=== PATIENT | female | born 1935 | race Caucasian/White ===

== ENCOUNTER 2017-11-25 08:01 | Inpatient (IN) | payer MEDICARE ==
[~2017-11-25] VITALS: Ht 5451.6 cm; Wt 62.7 kg
[~2017-11-25 08:01] MED LIST: CARV25TA PO; FURO-149 PO; INSU100V12 SQ; INSU100V36 SQ; ISOS30TA6 PO; SPIR25TA3 PO
[2017-11-25 08:42] LABS: BASOPHILS % (AUTO) 0.3 % (0-1); EOSINOPHILS # (AUTO) 0.1 X10'3 (0-0.9); EOSINOPHILS % (AUTO) 1.3 % (0-6); HEMATOCRIT 24.4 % (35.0-45.0); HEMOGLOBIN 8.5 g/dl (12.0-16.0); LYMPHOCYTES # (AUTO) 0.6 X10'3 (1.1-4.8); LYMPHOCYTES % (AUTO) 8.7 % (21-51); MEAN CORPUSCULAR HEMOGLOBIN 29.8 PG (27.0-31.0); MEAN CORPUSCULAR VOLUME 85.3 FL (78-98); MEAN PLATELET VOLUME 8.1 FL (7.4-10.4); MONOCYTES # (AUTO) 0.8 X10'3 (0-0.9); MONOCYTES % (AUTO) 12.1 % (2-12); NEUTROPHILS % (AUTO) 77.6 % (42-75); PLATELET COUNT 184 X10'3 (140-440); RED BLOOD COUNT 2.86 X10'6 (4.20-5.60); RED CELL DISTRIBUTION WIDTH 12.6 % (11.5-14.5); WHITE BLOOD COUNT 6.4 X10'3 (4.5-11.0)
[2017-11-25 08:53] LABS: INR 1.2 INR; PARTIAL THROMBOPLASTIN TIME 31 SECONDS (22-32); PROTHROMBIN TIME 12.2 SECONDS (9.0-12.0)
[2017-11-25 09:07] LABS: ALANINE AMINOTRANSFERASE 9 U/L (12-78); ALBUMIN 2.8 G/DL (3.4-5.0); ALBUMIN/GLOBULIN RATIO 0.7 (1.1-1.5); ALKALINE PHOSPHATASE 75 IU/L (46-116); ANION GAP 13 (8-16); ASPARTATE AMINO TRANSFERASE 10 U/L (10-37); BILIRUBIN,TOTAL 0.5 MG/DL (0.1-1.0); BLOOD UREA NITROGEN 68 MG/DL (7-18); BUN/CREATININE RATIO 22.7 (6.6-38.0); CALCIUM 8.9 MG/DL (8.5-10.1); CHLORIDE 93 MMOL/L (99-107); CREATININE 2.99 MG/DL (0.40-0.90); GLUCOSE 217 MG/DL (70-104); POTASSIUM 5.5 MMOL/L (3.5-5.1); SODIUM 127 MMOL/L (135-145); TOTAL CARBON DIOXIDE 20.9 MMOL/L (24-32); TOTAL PROTEIN 6.6 G/DL (6.4-8.2); eGFR 15 ML/MIN
[2017-11-25 09:59] LABS: CLARITY,URINE Turbid (Clear); COLOR,URINE Yellow (Yellow); GLUCOSE, URINE Negative (Neg); KETONES,URINE Negative (Neg); LEUKOCYTE ESTERASE ,URINE Large (Neg); NITRITES, URINE Negative (Neg); OCCULT BLOOD,URINE Trace (Neg); PROTEIN,URINE 100 mg/dl (Neg); UROBILINOGEN,URINE 0.2 E.U/dL (0.2-1.0)
[2017-11-25 10:00] LABS: UA COLLECTION TYPE FOLEY CATH
[2017-11-25 10:07] LABS: BACTERIA,URINE 4+ /HPF (Neg); MUCUS STRANDS NONE SEEN /LPF (Neg); RBC,URINE 0-2 /HPF (0-2); SQUAMOUS EPITHELIAL CELL,UR NONE SEEN /LPF (FEW); WBC,URINE TNTC /HPF (0-4)
[2017-11-25] MEDS ORDERED: levoFLOXACIN-Levaquin 500mg/D5 100 ML IV ONE (10:25)
[2017-11-25] MEDS ORDERED: magnesium hydroxide 30ml (MOM) UD suspension PO PRN (11:15)
[2017-11-25] MEDS ORDERED: mag hydrox/Alum hydrox/simeth 30ml oral suspension PO PRN (11:15)
[2017-11-25] MEDS ORDERED: glucagon, human recombinant 1mg kit SUBCUT PRN (11:15)
[2017-11-25] MEDS ORDERED: dextrose 50%-water 50ml dispensing syringe IV PRN ×2 (11:15)
[2017-11-25] MEDS ORDERED: acetaminophen 325mg tablet PO PRN (11:15)
[2017-11-25] MEDS ORDERED: ondansetron/PF 4mg/2ml inj IV PRN ×2 (11:15→14:20)
[2017-11-25] MEDS ORDERED: MESSAGE TO PHARMACY PO ONE (11:15)
[2017-11-25] MEDS ORDERED: dextrose ORAL solution 15 GM/59 ML bottle PO PRN ×2 (11:15)
[2017-11-25] MEDS: normal saline 1000ml 1,000 ML IV SCH ×2 (11:17→19:06)
[2017-11-25] MEDS ORDERED: insulin regular, human 10 units/0.1 ml syringe IV ONE (11:20)
[2017-11-25] MEDS ORDERED: dextrose 50%-water 50ml dispensing syringe IV ONE (11:20)
[2017-11-25] MEDS ORDERED: calcium chloride 100 MG/1 ML inj IV ONE (11:20)
[2017-11-25] MEDS ORDERED: sodium bicarbonate (8.4%) 1 mEq/ml syringe IV ONE (11:20)
[2017-11-25] MEDS ORDERED: albuterol 2.5 MG/3 ML nebule NEB ONE (11:20)
[2017-11-25] MEDS ORDERED: acetaminophen w/codeine (30MG) #3 tablet PO PRN (11:25)
[2017-11-25] MEDS ORDERED: HYDROcodone/acetaminophen 5mg/325mg tablet PO PRN (11:25)
[2017-11-25 11:50] LABS: ABG BASE EXCESS -7.7 mmol/L (-2.0-3.0); ABG OXYGEN SATURATION 97.7 % (95-98); ABG PCO2 (T) 26.3 mmHg (32.0-45.0); ABG PH (T) 7.401 (7.350-7.450); ABG PO2 (T) 110.5 mmHg (83-108); ALLEN'S TEST Positive; FCOHb 0.5 % (0.5-1.5); FLOW 1 L/min; FO2Hb 97.2 % (94-100); TOTAL HEMOGLOBIN 8.9 G/dl (12.0-16.0)
[2017-11-25] MEDS: sodium polystyrene sulfonate 15gm/60ml oral suspension PO ONE ×2 (11:58→14:11)
[2017-11-25 11:59] LABS: HEMOGLOBIN A1C 9.7 % (4.5-6.2)
[2017-11-25 12:03] LABS: C-REACTIVE PROTEIN 8.38 MG/DL (0.0-0.5); MAGNESIUM 1.3 MG/DL (1.5-2.4); PHOSPHORUS 3.5 MG/DL (2.3-4.5)
[2017-11-25] MEDS ORDERED: ASPI81TA52 PO (13:09)
[2017-11-25] MEDS ORDERED: LOSA25TA96 PO (13:47)
[2017-11-25] MEDS ORDERED: proCHLORperazine 10 MG/2 ml inj IV PRN ×2 (14:15→15:55)
[2017-11-25] MEDS ORDERED: potassium Cl 20 mEq SR tablet PO PRN ×2 (15:15)
[2017-11-25] MEDS ORDERED: potassium Cl 40MEQ/NS 500ml 500 ML IV PRN ×2 (15:15)
[2017-11-25 15:26] LABS: OCCULT BLOOD STOOL NEGATIVE (Neg)
[2017-11-25 15:30] VITALS: BP 115/54
[2017-11-25] MEDS: ondansetron/PF 4mg/2ml inj IV PRN (16:06)
[2017-11-25 16:08] LABS: C DIFF ANTIGEN NEGATIVE (NEGATIVE); C DIFF SPECIMEN=DIARRHEA? ACCEPTABLE; C DIFFICILE TOXINS A&B NEGATIVE (Neg)
[2017-11-25] MEDS ORDERED: magnesium Cl slow-release 64mg tablet PO PRN (17:25)
[2017-11-25] MEDS ORDERED: magnesium 4gm in 100ml NS 100 ML IV PRN (17:25)
[2017-11-25] MEDS ORDERED: magnesium 2GM in 50ml NS 50 ML IV PRN (17:25)
[2017-11-25] MEDS ORDERED: normal saline 1000ml 1,000 ML IV ONE (17:40)
[2017-11-25] MEDS ORDERED: diltiazem 5mg/ml 5ml inj. IV ONE ×2 (17:40→18:40)
[2017-11-25 19:00] VITALS: BP 107/55
[2017-11-25] MEDS: insulin Lispro (HumaLOG) vial - multi-dose SQ SCH (19:25)
[2017-11-25] MEDS: carVEDilol 12.5mg tablet PO SCH (20:00)
[2017-11-25] MEDS ORDERED: insulin glargine (Lantus) pen - multi-dose SQ ONE (22:00)
[2017-11-25 23:00] VITALS: BP 108/52
[2017-11-26] MEDS: normal saline 1000ml 1,000 ML IV SCH ×4 (00:37→20:37)
[2017-11-26 03:00] VITALS: BP 123/73
[2017-11-26 06:00] VITALS: BP 125/80
[2017-11-26 06:31] LABS: BASOPHILS % (AUTO) 0.5 % (0-1); EOSINOPHILS % (AUTO) 0.2 % (0-6); HEMOGLOBIN 8.5 g/dl (12.0-16.0); LYMPHOCYTES # (AUTO) 0.4 X10'3 (1.1-4.8); LYMPHOCYTES % (AUTO) 5.8 % (21-51); MEAN CORPUSCULAR HEMOGLOBIN 29.6 PG (27.0-31.0); MEAN CORPUSCULAR HGB CONC 34.2 % (33.0-36.5); MEAN CORPUSCULAR VOLUME 86.7 FL (78-98); MEAN PLATELET VOLUME 8.4 FL (7.4-10.4); MONOCYTES # (AUTO) 0.6 X10'3 (0-0.9); MONOCYTES % (AUTO) 8.2 % (2-12); NEUTROPHILS # (AUTO) 6.1 X10'3 (1.8-7.7); NEUTROPHILS % (AUTO) 85.3 % (42-75); PLATELET COUNT 197 X10'3 (140-440); RED BLOOD COUNT 2.88 X10'6 (4.20-5.60); RED CELL DISTRIBUTION WIDTH 12.2 % (11.5-14.5); WHITE BLOOD COUNT 7.1 X10'3 (4.5-11.0)
[2017-11-26 06:51] LABS: ALANINE AMINOTRANSFERASE 13 U/L (12-78); ALBUMIN 2.6 G/DL (3.4-5.0); ALBUMIN/GLOBULIN RATIO 0.7 (1.1-1.5); ALKALINE PHOSPHATASE 114 IU/L (46-116); ANION GAP 16 (8-16); ASPARTATE AMINO TRANSFERASE 17 U/L (10-37); BILIRUBIN,TOTAL 0.4 MG/DL (0.1-1.0); BLOOD UREA NITROGEN 66 MG/DL (7-18); BUN/CREATININE RATIO 25.5 (6.6-38.0); CALCIUM 8.9 MG/DL (8.5-10.1); CHLORIDE 99 MMOL/L (99-107); CREATININE 2.59 MG/DL (0.40-0.90); GLUCOSE 294 MG/DL (70-104); MAGNESIUM 3.2 MG/DL (1.5-2.4); POTASSIUM 4.9 MMOL/L (3.5-5.1); SODIUM 132 MMOL/L (135-145); TOTAL CARBON DIOXIDE 17.5 MMOL/L (24-32); TOTAL PROTEIN 6.3 G/DL (6.4-8.2); eGFR 18 ML/MIN
[2017-11-26] MEDS: carVEDilol 12.5mg tablet PO SCH ×2 (09:30→20:00)
[2017-11-26] MEDS: isosorbide mononitrate 30mg tab.SR.24H PO SCH (09:30)
[2017-11-26] MEDS: pantoprazole 40mg Tablet.DR PO SCH (09:30)
[2017-11-26] MEDS: insulin Lispro (HumaLOG) vial - multi-dose SQ SCH ×2 (10:05→13:55)
[2017-11-26 11:00] VITALS: BP 101/52
[2017-11-26 15:00] VITALS: BP 98/54
[2017-11-26] MEDS: acetaminophen 325mg tablet PO PRN (17:52)
[2017-11-26] MEDS ORDERED: insulin regular, human inj. 100 UNITS in normal saline 100ml IV soln 100 ML IV SCH ×2 (18:20)
[2017-11-26] MEDS ORDERED: dextrose 50%-water 50ml dispensing syringe IV PRN (18:20)
[2017-11-26 18:30] VITALS: BP 104/53
[2017-11-26] MEDS ORDERED: dextrose 5%-1/2 normal saline 1,000 ML IV SCH (20:00)
[2017-11-26 22:00] VITALS: BP 97/51
[2017-11-27] VITALS (17 sets, daily range): BP systolic 87–138; BP diastolic 49–96
[2017-11-27] MEDS: acetaminophen 325mg tablet PO PRN (01:58)
[2017-11-27] MEDS ORDERED: albumin (human) 25% 100 ML IV solution IV ONE (02:20)
[2017-11-27] MEDS: normal saline 1000ml 1,000 ML IV SCH ×5 (03:17→18:57)
[2017-11-27] MEDS: insulin Lispro (HumaLOG) vial - multi-dose SQ SCH ×6 (04:07→21:53)
[2017-11-27] MEDS ORDERED: furosemide 40mg/4ml inj IV ONE (05:35)
[2017-11-27 06:09] LABS: BASOPHILS % (AUTO) 0.5 % (0-1); EOSINOPHILS % (AUTO) 0.5 % (0-6); LYMPHOCYTES # (AUTO) 0.4 X10'3 (1.1-4.8); MEAN CORPUSCULAR HEMOGLOBIN 29.4 PG (27.0-31.0); MEAN CORPUSCULAR HGB CONC 34.3 % (33.0-36.5); MEAN CORPUSCULAR VOLUME 85.6 FL (78-98); MONOCYTES # (AUTO) 0.5 X10'3 (0-0.9); MONOCYTES % (AUTO) 9.4 % (2-12); NEUTROPHILS # (AUTO) 4.4 X10'3 (1.8-7.7); NEUTROPHILS % (AUTO) 81.6 % (42-75); PLATELET COUNT 168 X10'3 (140-440); RED BLOOD COUNT 2.36 X10'6 (4.20-5.60); RED CELL DISTRIBUTION WIDTH 12.4 % (11.5-14.5); WHITE BLOOD COUNT 5.4 X10'3 (4.5-11.0)
[2017-11-27 06:22] LABS: HEMATOCRIT 20.2 % (35.0-45.0); HEMOGLOBIN 6.9 g/dl (12.0-16.0)
[2017-11-27 06:32] LABS: ALANINE AMINOTRANSFERASE 20 U/L (12-78); ALBUMIN 2.7 G/DL (3.4-5.0); ALBUMIN/GLOBULIN RATIO 0.9 (1.1-1.5); ALKALINE PHOSPHATASE 99 IU/L (46-116); ANION GAP 15 (8-16); ASPARTATE AMINO TRANSFERASE 17 U/L (10-37); BILIRUBIN,TOTAL 0.5 MG/DL (0.1-1.0); BLOOD UREA NITROGEN 62 MG/DL (7-18); BUN/CREATININE RATIO 23.3 (6.6-38.0); CALCIUM 8.1 MG/DL (8.5-10.1); CHLORIDE 102 MMOL/L (99-107); CREATININE 2.66 MG/DL (0.40-0.90); GLUCOSE 227 MG/DL (70-104); MAGNESIUM 2.5 MG/DL (1.5-2.4); POTASSIUM 4.2 MMOL/L (3.5-5.1); SODIUM 134 MMOL/L (135-145); TOTAL CARBON DIOXIDE 16.6 MMOL/L (24-32); TOTAL PROTEIN 5.7 G/DL (6.4-8.2); eGFR 17 ML/MIN
[2017-11-27] MEDS: carVEDilol 12.5mg tablet PO SCH ×2 (08:00→19:24)
[2017-11-27] MEDS: pantoprazole 40mg Tablet.DR PO SCH (08:09)
[2017-11-27] MEDS: levoFLOXACIN-Levaquin 500mg/D5 100 ML IV SCH (08:09)
[2017-11-27] MEDS: isosorbide mononitrate 30mg tab.SR.24H PO SCH (08:09)
[2017-11-27 10:05] LABS: C-REACTIVE PROTEIN 5.89 MG/DL (0.0-0.5)
[2017-11-27] MEDS: ondansetron/PF 4mg/2ml inj IV PRN (14:06)
[2017-11-27 15:06] LABS: CLARITY,URINE TURBID (Clear); COLOR,URINE YELLOW (Yellow); GLUCOSE, URINE NEGATIVE (Neg); KETONES,URINE NEGATIVE (Neg); LEUKOCYTE ESTERASE ,URINE SMALL (Neg); NITRITES, URINE NEGATIVE (Neg); OCCULT BLOOD,URINE LARGE (Neg); PROTEIN,URINE 100 mg/dl (Neg)
[2017-11-27 15:08] LABS: UA COLLECTION TYPE FOLEY CATH
[2017-11-27 15:26] LABS: SQUAMOUS EPITHELIAL CELL,UR MANY /LPF (FEW)
[2017-11-27 15:27] LABS: FINE GRANULAR CAST 0-3 /LPF (NEGATIVE); HYALINE CASTS 0-3 /LPF (NEGATIVE)
[2017-11-27 15:29] LABS: BACTERIA,URINE 4+ /HPF (Neg); RBC,URINE TNTC /HPF (0-2); RENAL CELLS, URINE FEW /HPF; TRANSITIONAL EPI CELLS,URINE FEW /HPF; WBC,URINE 30-50 /HPF (0-4)
[2017-11-27 15:30] LABS: MUCUS STRANDS FEW /LPF (Neg)
[2017-11-27 18:25] LABS: UA EOSINOPHILS NO EOS /HPF
[2017-11-27] MEDS: lactobacillus rhamnosus 10,000 MMU CELLS/CAPSULE PO SCH (19:27)
[2017-11-27 20:21] LABS: HEMATOCRIT 31.1 % (35.0-45.0); HEMOGLOBIN 10.6 g/dl (12.0-16.0); MEAN CORPUSCULAR HEMOGLOBIN 29.3 PG (27.0-31.0); MEAN CORPUSCULAR VOLUME 86.2 FL (78-98); MEAN PLATELET VOLUME 8.6 FL (7.4-10.4); PLATELET COUNT 192 X10'3 (140-440); RED BLOOD COUNT 3.61 X10'6 (4.20-5.60); RED CELL DISTRIBUTION WIDTH 13.6 % (11.5-14.5); WHITE BLOOD COUNT 7.6 X10'3 (4.5-11.0)
[2017-11-27 20:43] LABS: OCCULT BLOOD STOOL POSITIVE (Neg)
[2017-11-27] MEDS: albuterol 2.5 MG/3 ML nebule NEB PRN (21:45)
[2017-11-28] MEDS: ondansetron/PF 4mg/2ml inj IV PRN ×3 (02:42→14:57)
[2017-11-28] MEDS: normal saline 1000ml 1,000 ML IV SCH ×2 (03:57→05:57)
[2017-11-28 04:33] VITALS: BP 102/65
[2017-11-28 05:37] LABS: BASOPHILS % (AUTO) 0.1 % (0-1); EOSINOPHILS # (AUTO) 0.1 X10'3 (0-0.9); EOSINOPHILS % (AUTO) 1.1 % (0-6); HEMATOCRIT 29.3 % (35.0-45.0); LYMPHOCYTES # (AUTO) 0.5 X10'3 (1.1-4.8); LYMPHOCYTES % (AUTO) 8.7 % (21-51); MEAN CORPUSCULAR HEMOGLOBIN 29.6 PG (27.0-31.0); MEAN CORPUSCULAR HGB CONC 34.3 % (33.0-36.5); MEAN CORPUSCULAR VOLUME 86.3 FL (78-98); MONOCYTES # (AUTO) 0.6 X10'3 (0-0.9); MONOCYTES % (AUTO) 9.7 % (2-12); NEUTROPHILS # (AUTO) 4.7 X10'3 (1.8-7.7); NEUTROPHILS % (AUTO) 80.4 % (42-75); PLATELET COUNT 169 X10'3 (140-440); RED BLOOD COUNT 3.39 X10'6 (4.20-5.60); RED CELL DISTRIBUTION WIDTH 13.5 % (11.5-14.5); WHITE BLOOD COUNT 5.8 X10'3 (4.5-11.0)
[2017-11-28 06:08] LABS: ALANINE AMINOTRANSFERASE 34 U/L (12-78); ALBUMIN 2.6 G/DL (3.4-5.0); ALBUMIN/GLOBULIN RATIO 0.8 (1.1-1.5); ALKALINE PHOSPHATASE 119 IU/L (46-116); ANION GAP 15 (8-16); ASPARTATE AMINO TRANSFERASE 26 U/L (10-37); BILIRUBIN,TOTAL 0.8 MG/DL (0.1-1.0); BLOOD UREA NITROGEN 66 MG/DL (7-18); BUN/CREATININE RATIO 24.8 (6.6-38.0); CALCIUM 8.5 MG/DL (8.5-10.1); CHLORIDE 101 MMOL/L (99-107); CREATININE 2.66 MG/DL (0.40-0.90); GLUCOSE 309 MG/DL (70-104); MAGNESIUM 2.4 MG/DL (1.5-2.4); POTASSIUM 4.8 MMOL/L (3.5-5.1); SODIUM 133 MMOL/L (135-145); TOTAL CARBON DIOXIDE 17.2 MMOL/L (24-32); TOTAL PROTEIN 5.9 G/DL (6.4-8.2); eGFR 17 ML/MIN
[2017-11-28 07:00] VITALS: BP 116/53
[2017-11-28] MEDS: isosorbide mononitrate 30mg tab.SR.24H PO SCH (07:55)
[2017-11-28] MEDS: pantoprazole 40mg Tablet.DR PO SCH (07:55)
[2017-11-28] MEDS: lactobacillus rhamnosus 10,000 MMU CELLS/CAPSULE PO SCH ×2 (07:55→17:05)
[2017-11-28] MEDS: carVEDilol 12.5mg tablet PO SCH ×2 (07:56→20:00)
[2017-11-28] MEDS: albuterol 2.5 MG/3 ML nebule NEB PRN (08:01)
[2017-11-28] MEDS: insulin Lispro (HumaLOG) vial - multi-dose SQ SCH ×2 (08:13→12:51)
[2017-11-28 11:00] VITALS: BP 101/61
[2017-11-28 15:00] VITALS: BP 112/60
[2017-11-28 19:00] VITALS: BP 114/66
[2017-11-28 23:00] VITALS: BP 107/70
[2017-11-29 03:00] VITALS: BP 120/73
[2017-11-29 05:51] LABS: BASOPHILS % (AUTO) 0.3 % (0-1); EOSINOPHILS # (AUTO) 0.1 X10'3 (0-0.9); EOSINOPHILS % (AUTO) 1.6 % (0-6); HEMATOCRIT 27.5 % (35.0-45.0); HEMOGLOBIN 9.4 g/dl (12.0-16.0); LYMPHOCYTES # (AUTO) 0.7 X10'3 (1.1-4.8); LYMPHOCYTES % (AUTO) 14.4 % (21-51); MEAN CORPUSCULAR HEMOGLOBIN 29.4 PG (27.0-31.0); MEAN CORPUSCULAR HGB CONC 34.2 % (33.0-36.5); MEAN CORPUSCULAR VOLUME 86.1 FL (78-98); MEAN PLATELET VOLUME 8.4 FL (7.4-10.4); MONOCYTES # (AUTO) 0.4 X10'3 (0-0.9); MONOCYTES % (AUTO) 9.4 % (2-12); NEUTROPHILS # (AUTO) 3.5 X10'3 (1.8-7.7); NEUTROPHILS % (AUTO) 74.3 % (42-75); PLATELET COUNT 158 X10'3 (140-440); RED BLOOD COUNT 3.19 X10'6 (4.20-5.60); WHITE BLOOD COUNT 4.7 X10'3 (4.5-11.0)
[2017-11-29 06:15] LABS: ALANINE AMINOTRANSFERASE 28 U/L (12-78); ALBUMIN 2.5 G/DL (3.4-5.0); ALBUMIN/GLOBULIN RATIO 0.8 (1.1-1.5); ALKALINE PHOSPHATASE 100 IU/L (46-116); ANION GAP 17 (8-16); ASPARTATE AMINO TRANSFERASE 14 U/L (10-37); BILIRUBIN,TOTAL 0.5 MG/DL (0.1-1.0); BLOOD UREA NITROGEN 69 MG/DL (7-18); CALCIUM 8.6 MG/DL (8.5-10.1); CHLORIDE 102 MMOL/L (99-107); CREATININE 2.76 MG/DL (0.40-0.90); GLUCOSE 348 MG/DL (70-104); MAGNESIUM 2.4 MG/DL (1.5-2.4); SODIUM 136 MMOL/L (135-145); TOTAL CARBON DIOXIDE 16.7 MMOL/L (24-32); TOTAL PROTEIN 5.7 G/DL (6.4-8.2); eGFR 16 ML/MIN
[2017-11-29 06:35] VITALS: BP 111/71
[2017-11-29] MEDS: isosorbide mononitrate 30mg tab.SR.24H PO SCH (07:24)
[2017-11-29] MEDS: lactobacillus rhamnosus 10,000 MMU CELLS/CAPSULE PO SCH ×2 (07:24→20:13)
[2017-11-29] MEDS: pantoprazole 40mg Tablet.DR PO SCH (07:24)
[2017-11-29] MEDS: levoFLOXACIN-Levaquin 500mg/D5 100 ML IV SCH (07:25)
[2017-11-29] MEDS: carVEDilol 12.5mg tablet PO SCH ×2 (07:25→20:13)
[2017-11-29] MEDS: insulin Lispro (HumaLOG) vial - multi-dose SQ SCH ×3 (10:05→18:00)
[2017-11-29 11:00] VITALS: BP 106/69
[2017-11-29] MEDS ORDERED: levoFLOXACIN 250mg tablet PO SCH (14:00)
[2017-11-29 15:00] VITALS: BP 106/69
[2017-11-29 18:00] VITALS: BP 121/68
[2017-11-29] MEDS ORDERED: proMETHazine 25mg rectal suppository RC PRN (21:30)
[2017-11-29] MEDS ORDERED: proMETHazine 12.5mg rectal suppository RC PRN (21:53)
[2017-11-29 22:00] VITALS: BP 121/68
[2017-11-30 02:00] VITALS: BP 116/64
[2017-11-30 05:35] LABS: BASOPHILS % (AUTO) 0.3 % (0-1); EOSINOPHILS # (AUTO) 0.1 X10'3 (0-0.9); EOSINOPHILS % (AUTO) 1.9 % (0-6); HEMATOCRIT 28.1 % (35.0-45.0); HEMOGLOBIN 9.5 g/dl (12.0-16.0); LYMPHOCYTES # (AUTO) 0.9 X10'3 (1.1-4.8); LYMPHOCYTES % (AUTO) 15.4 % (21-51); MEAN CORPUSCULAR HEMOGLOBIN 29.5 PG (27.0-31.0); MEAN CORPUSCULAR HGB CONC 33.9 % (33.0-36.5); MEAN PLATELET VOLUME 7.8 FL (7.4-10.4); MONOCYTES # (AUTO) 0.5 X10'3 (0-0.9); MONOCYTES % (AUTO) 8.3 % (2-12); NEUTROPHILS # (AUTO) 4.4 X10'3 (1.8-7.7); NEUTROPHILS % (AUTO) 74.1 % (42-75); PLATELET COUNT 169 X10'3 (140-440); RED BLOOD COUNT 3.23 X10'6 (4.20-5.60); RED CELL DISTRIBUTION WIDTH 13.6 % (11.5-14.5); WHITE BLOOD COUNT 5.9 X10'3 (4.5-11.0)
[2017-11-30 06:21] LABS: ALANINE AMINOTRANSFERASE 18 U/L (12-78); ALBUMIN 2.5 G/DL (3.4-5.0); ALBUMIN/GLOBULIN RATIO 0.8 (1.1-1.5); ALKALINE PHOSPHATASE 96 IU/L (46-116); ANION GAP 16 (8-16); ASPARTATE AMINO TRANSFERASE 11 U/L (10-37); BILIRUBIN,TOTAL 0.5 MG/DL (0.1-1.0); BLOOD UREA NITROGEN 69 MG/DL (7-18); BUN/CREATININE RATIO 26.4 (6.6-38.0); CALCIUM 8.7 MG/DL (8.5-10.1); CHLORIDE 104 MMOL/L (99-107); CREATININE 2.61 MG/DL (0.40-0.90); GLUCOSE 338 MG/DL (70-104); MAGNESIUM 2.3 MG/DL (1.5-2.4); SODIUM 136 MMOL/L (135-145); TOTAL CARBON DIOXIDE 16.1 MMOL/L (24-32); TOTAL PROTEIN 5.8 G/DL (6.4-8.2); eGFR 17 ML/MIN
[2017-11-30 06:35] VITALS: BP 99/60
[2017-11-30] MEDS ORDERED: levoFLOXACIN 250mg tablet PO SCH (08:00)
[2017-11-30] MEDS: carVEDilol 12.5mg tablet PO SCH (08:00)
[2017-11-30] MEDS: ondansetron/PF 4mg/2ml inj IV PRN ×2 (09:29→14:01)
[2017-11-30 11:00] VITALS: BP 114/67
[2017-11-30] MEDS: insulin Lispro (HumaLOG) vial - multi-dose SQ SCH (13:34)
[2017-11-30] MEDS: lactobacillus rhamnosus 10,000 MMU CELLS/CAPSULE PO SCH (13:38)
[2017-11-30] MEDS: pantoprazole 40mg Tablet.DR PO SCH (13:39)
[2017-11-30] MEDS: isosorbide mononitrate 30mg tab.SR.24H PO SCH (13:39)
[2017-12-01] MEDS ORDERED: levoFLOXACIN 500mg tablet PO SCH (11:00)
== END 2017-11-30 16:30 | DRG 871 ==
LOC: ER 08:02 → ED HOLD 11:17 → PCU 3S 15:33
PROVIDERS: ADMIT Family Medicine; ATTEND Internal Medicine
PROC: 30233N1 Transfusion of Nonautologous Red Blood Cells into Peripheral Vein, Percutaneous Approach (ICD-10-PCS; principal; 2017-11-27)
DX: A41.9 Sepsis, unspecified organism (principal); J96.00 Acute respiratory failure, unspecified whether with hypoxia or hypercapnia; J90 Pleural effusion, not elsewhere classified; J18.9 Pneumonia, unspecified organism; N18.4 Chronic kidney disease, stage 4 (severe); E11.22 Type 2 diabetes mellitus with diabetic chronic kidney disease; I48.91 Unspecified atrial fibrillation; N17.9 Acute kidney failure, unspecified; E87.2 Acidosis; E87.5 Hyperkalemia; E87.1 Hypo-osmolality and hyponatremia; J98.11 Atelectasis; J44.0 Chronic obstructive pulmonary disease with (acute) lower respiratory infection; E83.42 Hypomagnesemia; E86.0 Dehydration; K52.9 Noninfective gastroenteritis and colitis, unspecified; I50.9 Heart failure, unspecified; D64.9 Anemia, unspecified; B96.20 Unspecified Escherichia coli [E. coli] as the cause of diseases classified elsewhere; N30.90 Cystitis, unspecified without hematuria; Z88.5 Allergy status to narcotic agent; Z88.0 Allergy status to penicillin; Z88.2 Allergy status to sulfonamides; Z88.8 Allergy status to other drugs, medicaments and biological substances; Z79.899 Other long term (current) drug therapy; Z79.4 Long term (current) use of insulin; Z87.891 Personal history of nicotine dependence; Z82.49 Family history of ischemic heart disease and other diseases of the circulatory system; Z83.3 Family history of diabetes mellitus
CPT/HCPCS: 36415; 36600; 71046; 71250; 74176; 76775; 80053; 81001; 82272; 82570; 82803; 82948; 83036; 83605; 83690; 83735; 83880; 84100; 84145; 84300; 84484; 85018; 85025; 85027; 85610; 85651; 85730; 86140; 86885; 86900; 86901; 86920; 87040; 87045; 87046; 87077; 87088; 87186; 87207; 87324; 87449; 89055; 93005; 94640; 94760; 97116; 97161; 99285; A4315; A6212; A6213; A6258; J0780; J1815; J1940; J1956; J2405; J3475; J3490; J7030; J7042; J7120; P9016; P9047